=== PATIENT | male | born 1990 | race Caucasian/White ===

== ENCOUNTER 2017-03-16 12:24 | Emergency (ER) | payer SELFPAY ==
[~2017-03-16] VITALS: Ht 175.3 cm; Wt 82.0 kg
[2017-03-16 12:25] VITALS: BP 131/77; PULSE 85; RESP 16; TEMP 99; O2SAT 98
[2017-03-16] MEDS ORDERED: SODIUM CHLOR 0.9% 1000 ML INJ 1,000 ML IV SCH (15:09)
[2017-03-16] MEDS ORDERED: PANTOPRAZOLE SODIUM 40 MG VIAL IVP ONE (15:15)
[2017-03-16] MEDS ORDERED: ONDANSETRON HCL 4 MG/2 ML VIAL IVP ONE (15:15)
[2017-03-16] MEDS ORDERED: SODIUM CHLORIDE 0.9% FLUSH 10 ML FLUSH IV FLUSH PRN (15:15)
[2017-03-16 15:35] LABS: HEMOGLOBIN 15.1 GM/DL (13.0-17.0); MEAN CELL VOLUME 89.3 FL (80.0-100.0); MEAN CORPUSCULAR HEMOGLOBIN 30.6 PG (27.0-34.0); MEAN CORPUSCULAR HGB CONC 34.3 % (32.0-36.0); MEAN PLATELET VOLUME 8.6 FL (7.0-11.0); PLATELET COUNT 217 TH/MM3 (150-450); RED BLOOD COUNT 4.93 MIL/MM3 (4.50-5.90); RED CELL DISTRIBUTION WIDTH 13.5 % (11.6-17.2); WHITE BLOOD COUNT 6.6 TH/MM3 (4.0-11.0)
[2017-03-16 16:05] LABS: ALT (GPT) 22 U/L (12-78)
[2017-03-16 16:07] LABS: ALKALINE PHOSPHATASE 68 U/L (45-117); TOTAL BILIRUBIN ADULT 0.5 MG/DL (0.2-1.0)
[2017-03-16 16:13] LABS: ALBUMIN 4.1 GM/DL (3.4-5.0); AST (GOT) 18 U/L (15-37); BICARBONATE 24.4 MEQ/L (21.0-32.0); BLOOD UREA NITROGEN 14 MG/DL (7-18); CALCIUM 9.2 MG/DL (8.5-10.1); CHLORIDE 100 MEQ/L (98-107); CREATININE 0.98 MG/DL (0.60-1.30); GLOMERULAR FILTRATION RATE 92 ML/MIN (>89); GLUCOSE,RANDOM 85 MG/DL (74-106); LIPASE 86 U/L (73-393); SODIUM (NA) 135 MEQ/L (136-145)
[2017-03-16 16:14] VITALS: O2SAT 99
--- NOTE | 2017-03-16 16:19 | PD ---
HPI Chief Complaint: GI Complaint Time Seen by Provider: 14:54 Travel History International Travel<30 days: No Contact w/Intl Traveler<30days: No Traveled to known affect area: No History of Present Illness HPI 26-year-old male presents to the emergency department for evaluation of epigastric abdominal pain that started 2 days ago so she was vomiting. He states he has vomited innumerable times today. Patient reports history of same. He reports history of gastric ulcers, gastritis. He denies any blood in his vomit. Patient states last episode was approximately 6 months ago in [place]. He received a GI cocktail and was discharged with a prescription symptoms resolved. Patient states the pain is 6/10, sharp, intermittent. No fevers or chills. No other symptoms or complaints. He has no chronic medical problems and takes no prescriptions at this time. Moderate severity. No exacerbating or alleviating factors. PFSH Social History Alcohol Use: No Tobacco Use: Yes (PACK A DAY ) Substance Use: No Allergies-Medications (Allergen,Severity, Reaction): Coded Allergies: No Known Allergies (Unverified , 03/16/17) Reported Meds & Prescriptions Reported Meds & Active Scripts Active Ondansetron Odt 4 Mg Tab 4 Mg SL Q6HR PRN Protonix (Pantoprazole Sodium) 40 Mg Tab 40 Mg PO DAILY Review of Systems Except as stated in HPI: all other systems reviewed are Neg Physical Exam Narrative GENERAL: Well-nourished, well-developed male patient, ambulatory. Afebrile. SKIN: Focused skin assessment warm/dry. HEAD: Normocephalic. Atraumatic. EYES: No scleral icterus. No injection or drainage. NECK: Supple, trachea midline. No JVD or lymphadenopathy. CARDIOVASCULAR: Regular rate and rhythm without murmurs, gallops, or rubs. RESPIRATORY: Breath sounds equal bilaterally. No accessory muscle use. Lungs sounds are clear to auscultation. GASTROINTESTINAL: Abdomen soft, non-tender, nondistended. No abdominal tenderness to palpation MUSCULOSKELETAL: No cyanosis, or edema. BACK: Nontender without obvious deformity. No CVA tenderness. Data Data Last Documented VS Vital Signs Date Time Temp Pulse Resp B/P (MAP) Pulse Ox O2 Delivery O2 Flow Rate FiO2 03/16/17 16:14 99 Room Air 03/16/17 12:25 99.0 85 16 Orders Orders Complete Blood Count With Diff (03/16/17 15:09) Comprehensive Metabolic Panel (03/16/17 15:09) Lipase (03/16/17 15:09) Iv Access Insert/Monitor (03/16/17 15:09) Ecg Monitoring (03/16/17 15:09) Oximetry (03/16/17 15:09) Ondansetron Inj (Zofran Inj) (03/16/17 15:15) Pantoprazole Inj (Protonix Inj) (03/16/17 15:15) Sodium Chlor 0.9% 1000 Ml Inj (Ns 1000 M (03/16/17 15:09) Sodium Chloride 0.9% Flush (Ns Flush) (03/16/17 15:15) Al-Mag Hy-Si 40-40-4 Mg/Ml Liq (Mag-Al P (03/16/17 16:45) Lidocaine 2% Viscous (Xylocaine 2% Visco (03/16/17 16:45) Labs Laboratory Tests Test 03/16/17 15:21 White Blood Count 6.6 TH/MM3 Red Blood Count 4.93 MIL/MM3 Hemoglobin 15.1 GM/DL Hematocrit 44.0 % Mean Corpuscular Volume 89.3 FL Mean Corpuscular Hemoglobin 30.6 PG Mean Corpuscular Hemoglobin Concent 34.3 % Red Cell Distribution Width 13.5 % Platelet Count 217 TH/MM3 Mean Platelet Volume 8.6 FL CBC Comment AUTO DIFF Differential Total Cells Counted 100 Neutrophils % (Manual) 71 % Lymphocytes % 14 % Monocytes % 14 % Eosinophils % 1 % Neutrophils # (Manual) 4.7 TH/MM3 Differential Comment FINAL DIFF MANUAL Blood Urea Nitrogen 14 MG/DL Creatinine 0.98 MG/DL Random Glucose 85 MG/DL Total Protein 8.0 GM/DL Albumin 4.1 GM/DL Calcium Level 9.2 MG/DL Alkaline Phosphatase 68 U/L Aspartate Amino Transf (AST/SGOT) 18 U/L Alanine Aminotransferase (ALT/SGPT) 22 U/L Total Bilirubin 0.5 MG/DL Sodium Level 135 MEQ/L Potassium Level 3.8 MEQ/L Chloride Level 100 MEQ/L Carbon Dioxide Level 24.4 MEQ/L Anion Gap 11 MEQ/L Estimat Glomerular Filtration Rate 92 ML/MIN Lipase 86 U/L [facility] Medical Decision Making Medical Screen Exam Complete: Yes Emergency Medical Condition: Yes Medical Record Reviewed: Yes Differential Diagnosis Gastritis versus gastric ulcer versus pancreatitis Narrative Course 26-year-old male presents to the emergency department for evaluation of epigastric abdominal pain, vomiting for 2 days. He reports history of the same in the past relieved with GI cocktail. Patient appears well on exam. Abdominal exam is benign. IV access established. CBC, CMP, lipase are ordered and pending. Patient is given normal saline 1 L IV bolus, Protonix 40 mg IV, Zofran 4 mg IV. CBC shows no acute abnormality. CMP is unremarkable. Lipase is 86 Upon reexamination, patient states he feels much better. He has had no further vomiting. He'll be given a GI cocktail and discharged prescription for Protonix. He is to follow-up with a two way radio installer to return here for any acute worsening of symptoms. He verbalizes agreement and understanding. The patient was discharged in stable condition with instructions, including return instructions and follow up instructions. Diagnosis Primary Impression: Gastritis Qualified Codes: K29.00 - Acute gastritis without bleeding Referrals: Digital Imager call for appointment Patient Instructions: Gastritis (ED), General Instructions Departure Forms: Tests/Procedures, Work Release Enter return to work date: Mar 18, 2017 Additional Instructions: Take Protonix as directed. Take Zofran as directed as needed for nausea/vomiting. Follow-up with your primary care physician. Return to the emergency department for any acute worsening of symptoms. Med/Other Pt SpecificInfo: Prescription(s) given Scripts Ondansetron Odt (Ondansetron Odt) 4 Mg Tab 4 MG SL Q6HR Y for Nausea/Vomiting, #16 TAB 0 Refills Prov: Yaneli Jameson 03/16/17 Pantoprazole (Protonix) 40 Mg Tab 40 MG PO DAILY for Reflux, #30 TAB 0 Refills Prov: Yaneli Jameson 03/16/17 Disposition: 01 DISCHARGE HOME Condition: Stable Yaneli Jameson Mar 16, 2017 16:19
[2017-03-16 16:24] LABS: LYMPHOCYTES 14 % (9-44); MONOCYTES 14 % (0-8); NEUTROPHIL # MANUAL DIFF 4.7 TH/MM3 (1.8-7.7); POLYS (SEG NEUTROPHILS) 71 % (16-70)
[2017-03-16] MEDS ORDERED: ALUMINUM/MAGNESIUM/SIMETH 30 ML CUP PO ONE (16:45)
[2017-03-16] MEDS ORDERED: LIDOCAINE VISCOUS 2% SOLN 15 ML UDC PO ONE (16:45)
[2017-03-16] MEDS ORDERED: ONDA4TAB7 SL (16:48)
[2017-03-16] MEDS ORDERED: PROT40TA PO (16:48)
== END 2017-03-16 17:00 | disposition home or self-care (01) ==
LOC: NEPD 12:24
DX: K29.00 Acute gastritis without bleeding (principal); F17.200 Nicotine dependence, unspecified, uncomplicated
CPT/HCPCS: 80053; 83690; 85007; 85027; 96361; 96374; 96375; 99284; C9113; J2405; J7030

== ENCOUNTER 2017-04-05 12:56 | Emergency (ER) | payer SELFPAY ==
[~2017-04-05] VITALS: Ht 175.3 cm; Wt 85.0 kg
[~2017-04-05 12:56] MED LIST: ONDA4TAB7 SL; PROT40TA PO
[2017-04-05 13:03] VITALS: BP 112/54; PULSE 78; RESP 16; TEMP 98.5; O2SAT 99
[2017-04-05 14:11] LABS: AUTOMATED NEUTROPHIL # 4.9 TH/MM3 (1.8-7.7); BASOPHIL % 0.5 % (0.0-2.0); EOSINOPHIL # 0.2 TH/MM3 (0-0.4); EOSINOPHIL % 2.2 % (0.0-4.0); HEMATOCRIT 41.2 % (39.0-51.0); HEMOGLOBIN 14.4 GM/DL (13.0-17.0); LYMPH % 25.5 % (9.0-44.0); MEAN CELL VOLUME 89.7 FL (80.0-100.0); MEAN CORPUSCULAR HEMOGLOBIN 31.4 PG (27.0-34.0); MEAN PLATELET VOLUME 8.7 FL (7.0-11.0); MONO % 8.7 % (0.0-8.0); MONOCYTE # 0.7 TH/MM3 (0-0.9); NEUT % 63.1 % (16.0-70.0); PLATELET COUNT 207 TH/MM3 (150-450); RED BLOOD COUNT 4.59 MIL/MM3 (4.50-5.90); WHITE BLOOD COUNT 7.8 TH/MM3 (4.0-11.0)
[2017-04-05 14:20] LABS: PROTHROMBIN TIME - PATIENT 10.5 SEC (9.8-11.6)
[2017-04-05 14:29] LABS: ALBUMIN 3.9 GM/DL (3.4-5.0); ALT (GPT) 15 U/L (12-78); AST (GOT) 11 U/L (15-37); BICARBONATE 29.9 MEQ/L (21.0-32.0); BLOOD UREA NITROGEN 17 MG/DL (7-18); CALCIUM 8.8 MG/DL (8.5-10.1); CHLORIDE 107 MEQ/L (98-107); GLOMERULAR FILTRATION RATE 116 ML/MIN (>89); GLUCOSE,RANDOM 98 MG/DL (74-106); SODIUM (NA) 139 MEQ/L (136-145)
[2017-04-05 14:31] LABS: ALKALINE PHOSPHATASE 77 U/L (45-117); TOTAL BILIRUBIN ADULT 0.3 MG/DL (0.2-1.0); TOTAL PROTEIN 7.4 GM/DL (6.4-8.2)
[2017-04-05 15:31] VITALS: BP 119/56; PULSE 52; RESP 16; O2SAT 99
[2017-04-05] MEDS ORDERED: PROT40TA PO (16:14)
[2017-04-05] MEDS ORDERED: ONDA4TAB7 SL (16:14)
--- NOTE | 2017-04-05 16:14 | PD ---
HPI Chief Complaint: GI Complaint Time Seen by Provider: 15:45 Travel History International Travel<30 days: No Contact w/Intl Traveler<30days: No Traveled to known affect area: No History of Present Illness HPI 26-year-old man presents to the emergency department complaining of worsening epigastric pain. He has a history of severe peptic ulcer disease gastritis. He ran out of his Protonix about a week ago. Since then he has had worsening trouble with epigastric pain and vomiting. He had to leave work last night because of vomiting. He needs a note for work and a prescription for new medicine. He otherwise had been feeling generally well. No other complaints. History Past Medical History Medical History: Denies Significant Hx Past Surgical History Surgical History: No Previous Surgery Social History Alcohol Use: No Tobacco Use: Yes (PACK A DAY ) Allergies-Medications (Allergen,Severity, Reaction): Coded Allergies: No Known Allergies (Unverified , 03/16/17) Reported Meds & Prescriptions Reported Meds & Active Scripts Active Ondansetron Odt 4 Mg Tab 4 Mg SL Q6HR PRN Protonix (Pantoprazole Sodium) 40 Mg Tab 40 Mg PO DAILY Review of Systems Except as stated in HPI: all other systems reviewed are Neg Physical Exam Narrative GENERAL: Well-appearing 26-year-old man, no acute distress. SKIN: Focused skin assessment warm/dry. HEAD: Atraumatic. Normocephalic. EYES: Pupils equal and round. No scleral icterus. No injection or drainage. ENT: No nasal bleeding or discharge. Mucous membranes pink and moist. NECK: Trachea midline. No JVD. CARDIOVASCULAR: Regular rate and rhythm. No murmur appreciated. RESPIRATORY: No accessory muscle use. Clear to auscultation. Breath sounds equal bilaterally. GASTROINTESTINAL: Abdomen soft, non-tender, nondistended. Hepatic and splenic margins not palpable. MUSCULOSKELETAL: No obvious deformities. Data Data Last Documented VS Vital Signs Date Time Temp Pulse Resp B/P (MAP) Pulse Ox O2 Delivery O2 Flow Rate FiO2 04/05/17 15:31 52 16 119/56 (77) 99 04/05/17 13:03 98.5 Orders Orders Complete Blood Count With Diff (04/05/17 13:12) Comprehensive Metabolic Panel (04/05/17 13:12) Prothrombin Time / Inr (Pt) (04/05/17 13:12) Act Partial Throm Time (Ptt) (04/05/17 13:12) Ecg Monitoring (04/05/17 13:12) Orthostatic Vital Signs (04/05/17 13:12) Oximetry (04/05/17 13:12) Oxygen Administration (04/05/17 13:12) Iv Access Insert/Monitor (04/05/17 13:12) Type And Screen (04/05/17 13:12) Labs Laboratory Tests Test 04/05/17 14:05 White Blood Count 7.8 TH/MM3 Red Blood Count 4.59 MIL/MM3 Hemoglobin 14.4 GM/DL Hematocrit 41.2 % Mean Corpuscular Volume 89.7 FL Mean Corpuscular Hemoglobin 31.4 PG Mean Corpuscular Hemoglobin Concent 35.0 % Red Cell Distribution Width 14.0 % Platelet Count 207 TH/MM3 Mean Platelet Volume 8.7 FL Neutrophils (%) (Auto) 63.1 % Lymphocytes (%) (Auto) 25.5 % Monocytes (%) (Auto) 8.7 % Eosinophils (%) (Auto) 2.2 % Basophils (%) (Auto) 0.5 % Neutrophils # (Auto) 4.9 TH/MM3 Lymphocytes # (Auto) 2.0 TH/MM3 Monocytes # (Auto) 0.7 TH/MM3 Eosinophils # (Auto) 0.2 TH/MM3 Basophils # (Auto) 0.0 TH/MM3 CBC Comment DIFF FINAL Differential Comment Prothrombin Time 10.5 SEC Prothromb Time International Ratio 1.0 RATIO Activated Partial Thromboplast Time 27.3 SEC Blood Urea Nitrogen 17 MG/DL Creatinine 0.80 MG/DL Random Glucose 98 MG/DL Total Protein 7.4 GM/DL Albumin 3.9 GM/DL Calcium Level 8.8 MG/DL Alkaline Phosphatase 77 U/L Aspartate Amino Transf (AST/SGOT) 11 U/L Alanine Aminotransferase (ALT/SGPT) 15 U/L Total Bilirubin 0.3 MG/DL Sodium Level 139 MEQ/L Potassium Level 4.3 MEQ/L Chloride Level 107 MEQ/L Carbon Dioxide Level 29.9 MEQ/L Anion Gap 2 MEQ/L Estimat Glomerular Filtration Rate 116 ML/MIN [facility] Medical Decision Making Medical Screen Exam Complete: Yes Emergency Medical Condition: Yes Interpretation(s) LABS: CBC is unremarkable. CMP is unremarkable. Coags are unremarkable. Differential Diagnosis GERD, gastritis, pancreatitis, other Narrative Course 26-year-old man, looks well, history of gastritis and chronic GERD. Labs are unremarkable. We will refill his medications. Recommend outpatient follow-up. Diagnosis Primary Impression: Peptic ulcer disease Patient Instructions: General Instructions Med/Other Pt SpecificInfo: Prescription(s) given Scripts Ondansetron Odt (Ondansetron Odt) 4 Mg Tab 4 MG SL Q6HR Y for Nausea/Vomiting, #16 TAB 1 Refill Prov: Ajith Banegas MD 04/05/17 Pantoprazole (Protonix) 40 Mg Tab 40 MG PO DAILY for Reflux, #30 TAB 1 Refill Prov: Ajith Banegas MD 04/05/17 Disposition: 01 DISCHARGE HOME Condition: Stable Ajith Banegas MD Apr 05, 2017 16:14
== END 2017-04-05 16:29 | disposition home or self-care (01) ==
LOC: NEPD 12:56
DX: K27.9 Peptic ulcer, site unspecified, unspecified as acute or chronic, without hemorrhage or perforation (principal); R11.10 Vomiting, unspecified; F17.200 Nicotine dependence, unspecified, uncomplicated; Z79.899 Other long term (current) drug therapy
CPT/HCPCS: 80053; 85025; 85610; 85730; 86850; 86900; 86901; 99283

== ENCOUNTER 2017-04-20 17:07 | Emergency (ER) | payer SELFPAY ==
[~2017-04-20] VITALS: Ht 175.3 cm; Wt 80.0 kg
[2017-04-20 17:11] VITALS: BP 132/66; PULSE 86; RESP 16; TEMP 97.6; O2SAT 96
[2017-04-20 17:47] VITALS: BP 129/82; PULSE 79; RESP 18; O2SAT 98
--- NOTE | 2017-04-20 17:58 | PD ---
HPI Chief Complaint: Abdominal Pain Time Seen by Provider: 17:42 Travel History International Travel<30 days: No Contact w/Intl Traveler<30days: No Traveled to known affect area: No History of Present Illness HPI 26-year-old male with a history of peptic ulcer disease, gastritis presents emergency department complaining of nausea, vomiting, abdominal pain for 3 days. Patient states that he ran out of his Protonix on and developed the symptoms 3 days ago. He denies fever, chills. States he had one episode of bloody and coffee-ground emesis. Patient states that he try to go to work but is unable to because of the pain and vomiting. Patient states that he recently moved to the area and has been unable to find a primary care physician because he has not had the time and she has no insurance. Says that he was scoped years ago where he was diagnosed with esophageal tears and ulcers of his stomach. Patient says he is concerned because he is having these episodes and does not know what to do. PFSH Past Medical History Respiratory: Yes (ASTHMA) Social History Alcohol Use: No Tobacco Use: Yes (PACK A DAY ) Substance Use: No Allergies-Medications (Allergen,Severity, Reaction): Coded Allergies: No Known Allergies (Unverified , 03/16/17) Reported Meds & Prescriptions Reported Meds & Active Scripts Active Reglan (Metoclopramide HCl) 5 Mg Tab 5 Mg PO QID 7 Days Omeprazole 40 Mg Cap 40 Mg PO DAILY Take before breakfast everyday Zofran (Ondansetron HCl) 4 Mg Tab 4 Mg PO Q8HR PRN 10 Days Ondansetron Odt 4 Mg Tab 4 Mg SL Q6HR PRN Protonix (Pantoprazole Sodium) 40 Mg Tab 40 Mg PO DAILY Review of Systems Except as stated in HPI: all other systems reviewed are Neg Physical Exam Narrative GENERAL: Well-developed, well-nourished in mild distress SKIN: Focused skin assessment warm/dry. HEAD: Atraumatic. Normocephalic. EYES: Pupils equal and round. No scleral icterus. No injection or drainage. ENT: No nasal bleeding or discharge. Mucous membranes pink and moist. Posterior pharynx mildly erythematous with obvious irritation, no exudate NECK: Trachea midline. No JVD. CARDIOVASCULAR: Regular rate and rhythm. No murmur appreciated. RESPIRATORY: No accessory muscle use. Clear to auscultation. Breath sounds equal bilaterally. GASTROINTESTINAL: Abdomen soft, non-tender, nondistended. Hepatic and splenic margins not palpable. MUSCULOSKELETAL: No obvious deformities. No clubbing. No cyanosis. No edema. No CVA tenderness. Tenderness palpation to the midepigastric region. NEUROLOGICAL: Awake and alert. No obvious cranial nerve deficits. Motor grossly within normal limits. Normal speech. PSYCHIATRIC: Appropriate mood and affect; insight and judgment normal. Data Data Last Documented VS Vital Signs Date Time Temp Pulse Resp B/P (MAP) Pulse Ox O2 Delivery O2 Flow Rate FiO2 04/20/17 20:28 04/20/17 17:48 18 04/20/17 17:47 79 98 Room Air 04/20/17 17:11 97.6 Orders Orders Ondansetron Inj (Zofran Inj) (04/20/17 18:00) Sodium Chlor 0.9% 1000 Ml Inj (Ns 1000 M (04/20/17 18:00) Complete Blood Count With Diff (04/20/17 17:52) Comprehensive Metabolic Panel (04/20/17 17:52) Lipase (04/20/17 17:52) Pantoprazole Inj (Protonix Inj) (04/20/17 18:00) Mandatory Outpatient Referral (04/20/17 18:43) Metoclopramide Inj (Reglan Inj) (04/20/17 18:45) Ct Abd/Pel W Iv Contrast(Rout) (04/20/17 ) Urinalysis - C+S If Indicated (04/20/17 18:43) Iohexol 350 Inj (Omnipaque 350 Inj) (04/20/17 19:22) Ed Discharge Order (04/20/17 20:08) Labs Laboratory Tests Test 04/20/17 18:00 04/20/17 19:40 White Blood Count 8.3 TH/MM3 Red Blood Count 4.62 MIL/MM3 Hemoglobin 14.3 GM/DL Hematocrit 42.2 % Mean Corpuscular Volume 91.2 FL Mean Corpuscular Hemoglobin 30.9 PG Mean Corpuscular Hemoglobin Concent 33.9 % Red Cell Distribution Width 14.0 % Platelet Count 204 TH/MM3 Mean Platelet Volume 9.0 FL Neutrophils (%) (Auto) 81.0 % Lymphocytes (%) (Auto) 14.7 % Monocytes (%) (Auto) 3.6 % Eosinophils (%) (Auto) 0.4 % Basophils (%) (Auto) 0.3 % Neutrophils # (Auto) 6.7 TH/MM3 Lymphocytes # (Auto) 1.2 TH/MM3 Monocytes # (Auto) 0.3 TH/MM3 Eosinophils # (Auto) 0.0 TH/MM3 Basophils # (Auto) 0.0 TH/MM3 CBC Comment DIFF FINAL Differential Comment Blood Urea Nitrogen 13 MG/DL Creatinine 0.99 MG/DL Random Glucose 149 MG/DL Total Protein 7.5 GM/DL Albumin 4.1 GM/DL Calcium Level 8.9 MG/DL Alkaline Phosphatase 64 U/L Aspartate Amino Transf (AST/SGOT) 11 U/L Alanine Aminotransferase (ALT/SGPT) 15 U/L Total Bilirubin 0.3 MG/DL Sodium Level 140 MEQ/L Potassium Level 4.1 MEQ/L Chloride Level 107 MEQ/L Carbon Dioxide Level 29.1 MEQ/L Anion Gap 4 MEQ/L Estimat Glomerular Filtration Rate 91 ML/MIN Lipase 246 U/L Urine Color YELLOW Urine Turbidity CLEAR Urine pH 6.5 Urine Specific [place] 1.049 Urine Protein TRACE mg/dL Urine Glucose (UA) NEG mg/dL Urine Ketones NEG mg/dL Urine Occult Blood NEG Urine Nitrite NEG Urine Bilirubin NEG Urine Urobilinogen LESS THAN 2.0 MG/DL Urine Leukocyte Esterase NEG Urine RBC 2 /hpf Urine WBC LESS THAN 1 /hpf Urine Mucus FEW /lpf Microscopic Urinalysis Comment CULT NOT INDICATED MDM Medical Decision Making Medical Screen Exam Complete: Yes Emergency Medical Condition: Yes Differential Diagnosis Gastritis, 2 tinnitus, peptic ulcer disease, noncompliance Narrative Course 26-year-old male with a history of peptic ulcer disease, gastritis presents emergency department complaining of nausea, vomiting, abdominal pain for 3 days. Patient states that he ran out of his Protonix on and developed the symptoms 3 days ago. He denies fever, chills. States he had one episode of bloody and coffee-ground emesis. Patient states that he try to go to work but is unable to because of the pain and vomiting. Patient states that he recently moved to the area and has been unable to find a primary care physician because he has not had the time and she has no insurance. Says that he was scoped years ago where he was diagnosed with esophageal tears and ulcers of his stomach. Patient says he is concerned because he is having these episodes and does not know what to do. Vital signs stable. Labs ordered. Patient administered Protonix, Zofran, Reglan and 1 L normal saline. Patient feels significantly improved after Reglan. After review the MR, it appears the patient has not had imaging studies of his abdomen pelvis. Because this is his third visit to the emergency department, decided to order CT abdomen pelvis with IV contrast. Last Impressions Abdomen/Pelvis CT 04/20/17 0000 Signed Impressions: Service Date/Time: Thursday, April 20, 2017 19:12 - CONCLUSION: 1. No acute findings in abdomen and pelvic CT. Long Chávez MD I explained the importance of following up with a GI specialist. Advised that he is follow-up with his [facility] to get his peptic ulcer disease further evaluated. Place mandatory referral for gastroenterology. Please see Dr. Velasco's note as well regarding this patient. He will be discharged with Zofran, Reglan, omeprazole. States he had a difficult time with obtaining pantoprazole and zofran ODT because of cost. Will recommend omeprazole and PO zofran in addition to Reglan for his nausea. Patient states understanding and will comply. Recommended to return for worsening or persistent symptoms. Diagnosis Primary Impression: Gastritis Qualified Codes: K29.50 - Unspecified chronic gastritis without bleeding Referrals: [facility] Ice Hockey Coach Additional Instructions: Call [facility] tomorrow. Their phone number is [phone]. Follow-up the bobbin washer as discussed. A mandatory referral was placed for you. Take medication as prescribed. Avoid alcohol and tobacco or other drug use as this may worsen your condition. Scripts Metoclopramide (Reglan) 5 Mg Tab 5 MG PO QID for 7 Days, #28 TAB 0 Refills Prov: Liv Dunaway 04/20/17 Omeprazole (Omeprazole) 40 Mg Cap 40 MG PO DAILY, #30 CAP 0 Refills Take before breakfast everyday Prov: Liv Dunaway 04/20/17 Ondansetron (Zofran) 4 Mg Tab 4 MG PO Q8HR Y for NAUSEA OR VOMITING for 10 Days, TAB 0 Refills Prov: Liv Dunaway 04/20/17 Disposition: 01 DISCHARGE HOME Condition: Stable Liv Dunaway Apr 20, 2017 17:58
[2017-04-20] MEDS ORDERED: PANTOPRAZOLE SODIUM 40 MG VIAL IV PUSH ONE (18:00)
[2017-04-20] MEDS ORDERED: SODIUM CHLOR 0.9% 1000 ML INJ 1,000 ML IV ONE (18:00)
[2017-04-20] MEDS ORDERED: ONDANSETRON HCL 4 MG/2 ML VIAL IV PUSH ONE (18:00)
[2017-04-20] MEDS ORDERED: OMEP40CA2 PO (18:23)
[2017-04-20] MEDS ORDERED: ZOFR4TAB PO (18:23)
[2017-04-20 18:30] LABS: AUTOMATED NEUTROPHIL # 6.7 TH/MM3 (1.8-7.7); BASOPHIL % 0.3 % (0.0-2.0); EOSINOPHIL % 0.4 % (0.0-4.0); HEMATOCRIT 42.2 % (39.0-51.0); HEMOGLOBIN 14.3 GM/DL (13.0-17.0); LYMPH % 14.7 % (9.0-44.0); LYMPHOCYTE # 1.2 TH/MM3 (1.0-4.8); MEAN CELL VOLUME 91.2 FL (80.0-100.0); MEAN CORPUSCULAR HEMOGLOBIN 30.9 PG (27.0-34.0); MEAN CORPUSCULAR HGB CONC 33.9 % (32.0-36.0); MONO % 3.6 % (0.0-8.0); MONOCYTE # 0.3 TH/MM3 (0-0.9); PLATELET COUNT 204 TH/MM3 (150-450); RED BLOOD COUNT 4.62 MIL/MM3 (4.50-5.90); WHITE BLOOD COUNT 8.3 TH/MM3 (4.0-11.0)
[2017-04-20 18:38] LABS: ALBUMIN 4.1 GM/DL (3.4-5.0); ALT (GPT) 15 U/L (12-78); AST (GOT) 11 U/L (15-37); BICARBONATE 29.1 MEQ/L (21.0-32.0); BLOOD UREA NITROGEN 13 MG/DL (7-18); CALCIUM 8.9 MG/DL (8.5-10.1); CHLORIDE 107 MEQ/L (98-107); CREATININE 0.99 MG/DL (0.60-1.30); GLOMERULAR FILTRATION RATE 91 ML/MIN (>89); GLUCOSE,RANDOM 149 MG/DL (74-106); SODIUM (NA) 140 MEQ/L (136-145)
[2017-04-20 18:39] LABS: ALKALINE PHOSPHATASE 64 U/L (45-117); TOTAL BILIRUBIN ADULT 0.3 MG/DL (0.2-1.0); TOTAL PROTEIN 7.5 GM/DL (6.4-8.2)
[2017-04-20] MEDS ORDERED: METOCLOPRAMIDE HCL 10 MG/2 ML VIAL IV PUSH ONE (18:45)
--- NOTE | 2017-04-20 18:50 | PD ---
Physical Exam Narrative I, Dr. Kulkarni, have reviewed the advance practice practitioner's documentation and am in agreement, met with the patient face to face, made the diagnosis, and the medical decision making was done by me. *My assessment and Findings: Gastritis vs. Chronic abdominal pain vs. gastroparesis vs. peptic ulcer disease 26yo M with nausea and vomiting for 3 days. Said he has chronic abdominal pain for years. Pt has been here February, and this is the third ED visit. Pt said he had endoscopy years ago and has not follow up with GI because of no insurance. Labs reviewed, no leukocytosis. H/H normal. CMP unremarkable. Lipase normal. Pt given zofran, NS IVF, pantoprazole. Pt reevaluated at bedside and still in a lot of pain and also vomited again. Reglan ordered. Since pt is still vomiting and he has not had any imaging and this is his third ED visit, will do CT a/p. My PA will follow up with CT and discharge if negative. Data Data Last Documented VS Vital Signs Date Time Temp Pulse Resp B/P (MAP) Pulse Ox O2 Delivery O2 Flow Rate FiO2 04/20/17 20:28 04/20/17 17:48 18 04/20/17 17:47 79 98 Room Air 04/20/17 17:11 97.6 Orders Orders Ondansetron Inj (Zofran Inj) (04/20/17 18:00) Sodium Chlor 0.9% 1000 Ml Inj (Ns 1000 M (04/20/17 18:00) Complete Blood Count With Diff (04/20/17 17:52) Comprehensive Metabolic Panel (04/20/17 17:52) Lipase (04/20/17 17:52) Pantoprazole Inj (Protonix Inj) (04/20/17 18:00) Mandatory Outpatient Referral (04/20/17 18:43) Metoclopramide Inj (Reglan Inj) (04/20/17 18:45) Ct Abd/Pel W Iv Contrast(Rout) (04/20/17 ) Urinalysis - C+S If Indicated (04/20/17 18:43) Iohexol 350 Inj (Omnipaque 350 Inj) (04/20/17 19:22) Ed Discharge Order (04/20/17 20:08) Labs Laboratory Tests Test 04/20/17 18:00 04/20/17 19:40 White Blood Count 8.3 TH/MM3 Red Blood Count 4.62 MIL/MM3 Hemoglobin 14.3 GM/DL Hematocrit 42.2 % Mean Corpuscular Volume 91.2 FL Mean Corpuscular Hemoglobin 30.9 PG Mean Corpuscular Hemoglobin Concent 33.9 % Red Cell Distribution Width 14.0 % Platelet Count 204 TH/MM3 Mean Platelet Volume 9.0 FL Neutrophils (%) (Auto) 81.0 % Lymphocytes (%) (Auto) 14.7 % Monocytes (%) (Auto) 3.6 % Eosinophils (%) (Auto) 0.4 % Basophils (%) (Auto) 0.3 % Neutrophils # (Auto) 6.7 TH/MM3 Lymphocytes # (Auto) 1.2 TH/MM3 Monocytes # (Auto) 0.3 TH/MM3 Eosinophils # (Auto) 0.0 TH/MM3 Basophils # (Auto) 0.0 TH/MM3 CBC Comment DIFF FINAL Differential Comment Blood Urea Nitrogen 13 MG/DL Creatinine 0.99 MG/DL Random Glucose 149 MG/DL Total Protein 7.5 GM/DL Albumin 4.1 GM/DL Calcium Level 8.9 MG/DL Alkaline Phosphatase 64 U/L Aspartate Amino Transf (AST/SGOT) 11 U/L Alanine Aminotransferase (ALT/SGPT) 15 U/L Total Bilirubin 0.3 MG/DL Sodium Level 140 MEQ/L Potassium Level 4.1 MEQ/L Chloride Level 107 MEQ/L Carbon Dioxide Level 29.1 MEQ/L Anion Gap 4 MEQ/L Estimat Glomerular Filtration Rate 91 ML/MIN Lipase 246 U/L Urine Color YELLOW Urine Turbidity CLEAR Urine pH 6.5 Urine Specific [place] 1.049 Urine Protein TRACE mg/dL Urine Glucose (UA) NEG mg/dL Urine Ketones NEG mg/dL Urine Occult Blood NEG Urine Nitrite NEG Urine Bilirubin NEG Urine Urobilinogen LESS THAN 2.0 MG/DL Urine Leukocyte Esterase NEG Urine RBC 2 /hpf Urine WBC LESS THAN 1 /hpf Urine Mucus FEW /lpf Microscopic Urinalysis Comment CULT NOT INDICATED MDM Supervised Visit with KARIME: Yes Diagnosis Primary Impression: Abdominal pain Qualified Codes: R10.84 - Generalized abdominal pain Scripts Metoclopramide (Reglan) 5 Mg Tab 5 MG PO QID for 7 Days, #28 TAB 0 Refills Prov: Liv Dunaway 04/20/17 Omeprazole (Omeprazole) 40 Mg Cap 40 MG PO DAILY, #30 CAP 0 Refills Take before breakfast everyday Prov: Liv Dunaway 04/20/17 Ondansetron (Zofran) 4 Mg Tab 4 MG PO Q8HR Y for NAUSEA OR VOMITING for 10 Days, TAB 0 Refills Prov: Liv Dunaway 04/20/17 Disposition: 01 DISCHARGE HOME Condition: Stable KulkarniGina larkinlamonte AVILEZ Apr 20, 2017 18:50
[2017-04-20] MEDS ORDERED: IOHEXOL 350 MG/ML 10 ML VIAL (for RAD DIAG) IVCONTRAST ONE (19:22)
--- NOTE | 2017-04-20 19:30 | RADRPT ---
EXAM DATE/TIME: 04/20/2017 19:12 [place] COMPARISON: No previous studies available for comparison. INDICATIONS : Abdominal pain and nausea X 2 days. IV CONTRAST: 91 cc Omnipaque 350 (iohexol) IV ORAL CONTRAST: No oral contrast ingested. RADIATION DOSE: 7.12 CTDIvol (mGy) MEDICAL HISTORY : Gastroesophageal reflux disease. Asthma and Ulcers SURGICAL HISTORY : None. ENCOUNTER: Initial ACUITY: 2 days PAIN SCALE: 6/10 LOCATION: TECHNIQUE: Volumetric scanning of the abdomen and pelvis was performed. Using automated exposure control and ad justment of the mA and/or kV according to patient size, radiation dose was kept as low as reasonably achievable to obtain optimal diagnostic quality images. DICOM format image data is available electro nically for review and comparison. FINDINGS: Lung bases are clear. No effusion. No acute findings in the liver. Small cyst is about 1 cm in anterior liver. Spleen, adrenals, kidneys and pancreas unremarkable. No gallstones. The fluid. No bowel obstruction. No adenopathy. Previous f ixation right femur. CONCLUSION: 1. No acute findings in abdomen and pelvic CT. Long Chávez MD on April 20, 2017 at 19:24 Board Certified Radiologist. This report was verified electronically.
[2017-04-20 19:58] LABS: BILIRUBIN, URINE NEG (NEG); BLOOD, URINE NEG (NEG); GLUCOSE,URINE NEG (NEG); KETONE, URINE NEG (NEG); MUCUS URINE FEW /lpf (OCC); NITRITE,URINE NEG (NEG); PH, URINE 6.5 (5.0-8.5); URINE COLOR YELLOW (YELLW/STRAW); URINE LEUKOCYTE ESTERASE NEG (NEG)
[2017-04-20] MEDS ORDERED: REGL5TAB PO (20:09)
== END 2017-04-20 20:30 | disposition home or self-care (01) ==
LOC: NEPC 17:07
DX: K29.50 Unspecified chronic gastritis without bleeding (principal); F17.200 Nicotine dependence, unspecified, uncomplicated; Z87.11 Personal history of peptic ulcer disease
CPT/HCPCS: 74177; 80053; 81001; 83690; 85025; 96361; 96374; 96375; 99284; C9113; J2405; J2765; J7030; Q9967

== ENCOUNTER 2017-05-06 00:40 | Emergency (ER) | payer SELFPAY ==
[~2017-05-06] VITALS: Ht 175.3 cm; Wt 75.0 kg
[~2017-05-06 00:40] MED LIST changes: +OMEP40CA2 PO; +REGL5TAB PO; +ZOFR4TAB PO
[2017-05-06 01:10] VITALS: BP 102/49; PULSE 84; RESP 18; TEMP 100; O2SAT 96
--- NOTE | 2017-05-06 05:06 | PD ---
HPI Chief Complaint: Abdominal Pain Time Seen by Provider: 05:05 Travel History International Travel<30 days: No Contact w/Intl Traveler<30days: No Traveled to known affect area: No History of Present Illness HPI 26-year-old male came to the emergency room complaining of vomiting and nausea and says that his gastritis is acting up. He's run out of his reflux medication. He has an appointment for the first time with a primary care physician in another one week. But meanwhile he came here because he was at work last night when he started to vomit again. And has been here multiple times since the beginning of this year for the same condition. He's had extensive workup including CAT scan and they have all been negative. Patient before that these live in [place]. Vital signs are stable. His last vomit was 4-5 hours ago. [facility] Past Medical History Narrative Medical List of his past medical, surgical, social and family history reviewed from the nursing note. Asthma: Yes Diminished Hearing: No Gastrointestinal Disorders: Yes (Ulcers) GERD: Yes Respiratory: Yes (ASTHMA) Ulcer: Yes Tetanus Vaccination: Unknown Influenza Vaccination: No Social History Alcohol Use: No Tobacco Use: Yes (PACK A DAY ) Substance Use: No Allergies-Medications (Allergen,Severity, Reaction): Coded Allergies: No Known Allergies (Unverified , 05/06/17) Comments Known drug allergies. Reported Meds & Prescriptions Reported Meds & Active Scripts Active Zofran (Ondansetron HCl) 4 Mg Tab 4 Mg PO Q8HR PRN 10 Days Protonix (Pantoprazole Sodium) 40 Mg Tab 40 Mg PO DAILY Reglan (Metoclopramide HCl) 5 Mg Tab 5 Mg PO QID 7 Days Omeprazole 40 Mg Cap 40 Mg PO DAILY Take before breakfast everyday Ondansetron Odt 4 Mg Tab 4 Mg SL Q6HR PRN Narrative Medication List of his home medications reviewed from the nursing note. Review of Systems Except as stated in HPI: all other systems reviewed are Neg Gastrointestinal: Positive: Nausea, Vomiting Physical Exam Narrative GENERAL: Awake, alert, mild distress SKIN: Focused skin assessment warm/dry. Multiple sores on his face HEAD: Atraumatic. Normocephalic. EYES: Pupils equal and round. No scleral icterus. No injection or drainage. ENT: No nasal bleeding or discharge. Mucous membranes pink and moist. NECK: Trachea midline. No JVD. CARDIOVASCULAR: Regular rate and rhythm. No murmur appreciated. RESPIRATORY: No accessory muscle use. Clear to auscultation. Breath sounds equal bilaterally. GASTROINTESTINAL: Abdomen soft, non-tender, nondistended. Hepatic and splenic margins not palpable. MUSCULOSKELETAL: No obvious deformities. No clubbing. No cyanosis. No edema. NEUROLOGICAL: Awake and alert. No obvious cranial nerve deficits. Motor grossly within normal limits. Normal speech. PSYCHIATRIC: Appropriate mood and affect; insight and judgment normal. Data Data Last Documented VS Orders Orders Ondansetron Odt (Zofran Odt) (05/06/17 05:15) Pantoprazole (Protonix) (05/06/17 05:15) Ed Discharge Order (05/06/17 05:13) [facility] Medical Decision Making Medical Screen Exam Complete: Yes Emergency Medical Condition: Yes Medical Record Reviewed: Yes Differential Diagnosis Acute on chronic gastritis, cyclic vomiting syndrome Narrative Course 5:17 AM since patient has had negative workup multiple times including a CAT scan and I decided not to do any further workup. I've given him oral Zofran and Protonix here to take. He'll be discharged home with a prescription for those. Patient has not vomited in 4 hours and I'm comfortable discharging him home. Procedures EKG Prior to Arrival: No Diagnosis Primary Impression: Gastritis Qualified Codes: K29.00 - Acute gastritis without bleeding Referrals: Primary Care Physician 2 days Departure Forms: Tests/Procedures, Work Release Enter return to work date: May 07, 2017 Additional Instructions: Please return to the ER if condition worsens or any other new concerns. Otherwise take the medication as per the prescription direction. Med/Other Pt SpecificInfo: Prescription(s) given Scripts Ondansetron (Zofran) 4 Mg Tab 4 MG PO Q8HR Y for NAUSEA OR VOMITING for 10 Days, TAB 0 Refills Prov: Prateek Hodges MD 05/06/17 Pantoprazole (Protonix) 40 Mg Tab 40 MG PO DAILY for Reflux, #30 TAB 1 Refill Prov: Prateek Hodges MD 05/06/17 Disposition: 01 DISCHARGE HOME Condition: Stable Prateek Hodges MD May 06, 2017 05:06
[2017-05-06] MEDS ORDERED: PROT40TA PO (05:12)
[2017-05-06] MEDS ORDERED: ZOFR4TAB PO (05:12)
[2017-05-06] MEDS ORDERED: ONDANSETRON ODT 4 MG TAB PO ONE (05:15)
[2017-05-06] MEDS ORDERED: PANTOPRAZOLE SOD 40 MG DELAYED RELEASE TAB PO ONE (05:15)
[2017-05-06 05:17] VITALS: TEMP 98
== END 2017-05-06 05:24 | disposition home or self-care (01) ==
LOC: NEPE 00:40
DX: K29.00 Acute gastritis without bleeding (principal); K21.9 Gastro-esophageal reflux disease without esophagitis; F17.200 Nicotine dependence, unspecified, uncomplicated
CPT/HCPCS: 99283